=== PATIENT | female | born 1990 | race Caucasian/White ===

== ENCOUNTER → 2023-06-12 | Outpatient (CLI) | payer OTHER ==
--- NOTE | 2023-06-12 16:14 | US ---
EXAMINATION TYPE: US pelvic complete DATE OF EXAM: 06/12/2023 COMPARISON: NONE CLINICAL INDICATION: Female, 32 years old with history of R10.819, N94.10 UNSPECIFIED DYSPAREUNIA; ov remington cyst TECHNIQUE: Transabdominal (TA). Transabdominal sonographic images of the pelvis were acquired. EXAM MEASUREMENTS: Uterus: 9.0 x 2.6 x 5.7 cm Endometrial Stripe: .6 cm Right Ovary: 3.2 x 1.9 x 1.5 cm Left Ovary: 4.2 x 2.1 x 3.4 cm 1. Uterus: Anteverted wnl 2. Endometrium: wnl 3. Right Ovary: Complex area adjacent to ovary 5.8 cm. 4. Left Ovary: Follicles seen 5. Bilateral Adnexa: wnl 6. Posterior cul-de-sac: Complex area adjacent to right ovary extends into cul-de-sac. Urinary bladder is sonolucent. Posterior wall is normal. IMPRESSION: 1. Complex cystic and solid mass right adnexa. Additional workup is recommended. Correlation with CA 125 is recommended.
== END | disposition home or self-care (01) ==
LOC: RADUSWWP 14:43
PROVIDERS: ATTEND Family Medicine
DX: N94.10 Unspecified dyspareunia (principal); N83.291 Other ovarian cyst, right side; R10.819 Abdominal tenderness, unspecified site
CPT/HCPCS: 76856

== ENCOUNTER → 2023-09-12 | Outpatient (CLI) | payer OTHER ==
[2023-09-13 02:44] LABS: Alpha Fetoprotein, Tumor Mkr <3.00 ng/mL (0.00-7.90); Cancer Antigen 125 6.3 U/mL (0.0-30.1); Carcinoembryonic Antigen <2.0 ng/mL (0.0-4.9); HCG,Quantitative Serum <3.0 mIU/mL (0.0-6.0)
== END | disposition home or self-care (01) ==
LOC: LABWHC1 15:42
DX: N83.8 Other noninflammatory disorders of ovary, fallopian tube and broad ligament (principal)
CPT/HCPCS: 36415; 82105; 82378; 83625; 84702; 86304